=== PATIENT | male | born 1970 | race Caucasian/White ===

== ENCOUNTER 2017-03-13 10:28 | Emergency (ER) | payer OTHER ==
[~2017-03-13] VITALS: Ht 175.3 cm; Wt 79.4 kg
[~2017-03-13 10:28] MED LIST: HYDROCODONE-AP1 EAC6 PO; IBUPROFEN 800800 M1; NAPROSYN500 MG PO; NEURONTIN 300300 M1 PO; NORCO 5-325 TA1 EACH PO; PENICILLIN VK500 M1 PO; PENICILLIN VK500 MG PO
[2017-03-13] MEDS ORDERED: PENICILLIN V P500 MG PO (11:18)
[2017-03-13] MEDS ORDERED: MOBIC7.5 MG PO (11:18)
[2017-03-13] MEDS ORDERED: OXYCODONE HCL 55 MG PO (11:41)
[2017-03-13 12:01] VITALS: BP 142/99
== END 2017-03-13 11:55 | disposition home or self-care (01) ==
LOC: ER 10:28
DX: K02.9 Dental caries, unspecified (principal); Z88.6 Allergy status to analgesic agent; Z88.2 Allergy status to sulfonamides